=== PATIENT | male | born 1955 | race Caucasian/White ===

== ENCOUNTER 2017-04-19 12:06 | Emergency (ER) | payer OTHER ==
[~2017-04-19] VITALS: Ht 180.3 cm; Wt 120.5 kg
[2017-04-19] MEDS ORDERED: BRIL90TA (12:18)
[2017-04-19] MEDS ORDERED: LIPI80TA (12:18)
[2017-04-19] MEDS ORDERED: NITR4TASL (12:18)
[2017-04-19] MEDS ORDERED: LISI-538 (12:18)
[2017-04-19] MEDS ORDERED: TYLE650T35 PO (12:18)
[2017-04-19] MEDS ORDERED: ASPI1TAB15 (12:18)
[2017-04-19] MEDS ORDERED: VITA1CAP40 PO (12:18)
[2017-04-19] MEDS ORDERED: TRAM50TA2 (12:18)
[2017-04-19] MEDS ORDERED: [UNRECOGNIZED DRUG - CODE] (12:18)
[2017-04-19] MEDS ORDERED: CELE1CAP4 (12:18)
[2017-04-19] MEDS ORDERED: METAL LOCK LOOP XX ONE ×3 (12:42→13:55)
[2017-04-19] MEDS ORDERED: NORCO, ANEXSIA 5/325MG TABLET (HYDROcodone/ACETAMINOPHEN) PO ONE (13:15)
--- NOTE | 2017-04-19 14:03 | REP ---
Clinical: Trauma. Technique: Single AP view of the pelvis with neutral and frog lateral views of the right hip. Findings: Asymmetric advanced arthritic degenerative changes the right hip are appreciated and relatively similar when compared to CT of the abdomen and pelvis dated 2007. No obvious acute fracture dislocation. Impression: Advanced arthritic degenerative changes to the right hip. No obvious acute fracture dislocation. Signed by Adin Viveros MD 04/19/2017 01:55 P
--- NOTE | 2017-04-19 14:05 | REP ---
Clinical: Trauma. Technique: AP, lateral views of the right forearm. Findings: The osseous structures and joint spaces are intact and normal. There is no evidence for acute fracture or dislocation. Soft tissue swelling is noted underlying the mid forearm. No foreign body. Impression: Swelling. No acute fracture or dislocation. Signed by Adin Viveros MD 04/19/2017 01:56 P
[2017-04-19] MEDS ORDERED: NORCOTAB PO (14:42)
[2017-04-19 14:43] VITALS: BP 140/77
== END 2017-04-19 14:51 | disposition home or self-care (01) ==
LOC: M ED 12:06
DX: S70.01XA Contusion of right hip, initial encounter (principal); S50.11XA Contusion of right forearm, initial encounter; W01.198A Fall on same level from slipping, tripping and stumbling with subsequent striking against other object, initial encounter; Y92.019 Unspecified place in single-family (private) house as the place of occurrence of the external cause; Y93.89 Activity, other specified; Y99.8 Other external cause status; E78.00 Pure hypercholesterolemia, unspecified; Z79.899 Other long term (current) drug therapy; Z79.82 Long term (current) use of aspirin; Z95.5 Presence of coronary angioplasty implant and graft

== ENCOUNTER → 2019-06-07 | Outpatient (REF) | payer MEDICARE, OTHER ==
[~2019-06-07] MED LIST: ASPI1TAB15; BRIL90TA; CELE1CAP4; HYDR-3715 PO; LIPI80TA; LISI-538; NITR4TASL; TRAM50TA2; TYLE650T35 PO; VITA50005 PO; [UNRECOGNIZED DRUG - CODE]
[2019-06-07 17:15] LABS: ALBUMIN 3.5 GM/DL (3.2-5.2); ALT/SGPT 37 U/L (12-78); BILIRUBIN,TOTAL 0.4 MG/DL (0.2-1.0); BLOOD UREA NITROGEN 23 MG/DL (7-18); CALCIUM LEVEL 8.8 MG/DL (8.8-10.2); CARBON DIOXIDE LEVEL 27 MEQ/L (21-32); CHLORIDE LEVEL 106 MEQ/L (98-107); CHOLESTEROL LEVEL 176 MG/DL (<200); CHOLESTEROL RISK RATIO 3.744 (<5); CREATININE FOR GFR 1.09 MG/DL (0.70-1.30); GLOMERULAR FILTRATION RATE > 60.0 (>49); GLUCOSE, FASTING 96 MG/DL (70-100); HDL CHOLESTEROL 47 MG/DL (>40); LDL CHOLESTEROL 106 MG/DL (<100); NON-HDL-C 129 MG/DL; POTASSIUM SERUM 4.8 MEQ/L (3.5-5.1); SODIUM LEVEL 140 MEQ/L (136-145); TOTAL PROTEIN 6.8 GM/DL (6.4-8.2); TRIGLYCERIDES LEVEL 117 MG/DL (<150); URIC ACID 5.7 MG/DL (3.5-7.2)
[2019-06-07 19:59] LABS: HEMOGLOBIN A1c 6.2 %
== END ==
LOC: M SFHCLERA 10:02
PROVIDERS: ATTEND Family Medicine
DX: E55.9 Vitamin D deficiency, unspecified (principal); I10 Essential (primary) hypertension; M13.0 Polyarthritis, unspecified; E66.01 Morbid (severe) obesity due to excess calories

== ENCOUNTER → 2019-06-07 | Outpatient (CLI) | payer MEDICARE, OTHER ==
--- NOTE | 2019-06-07 15:53 | REP ---
REASON FOR EXAM: Polyarthropathy. COMPARISON EXAM: None. There is severe asymmetric interdigital joint space narrowing particularly affecting the DIP joints of digits 2-5 inclusive. More moderate changes are seen involving the PIP joints of digits 2-5 and the interphalangeal joint of digit 1. There is prominent marginal osteophytosis again, affecting the most heavily involved interphalangeal joint. There is no jayesh periarticular osteopenia and there are no jayesh marginal erosions. There is no acute fracture. Chronic changes are seen involving the wrist particularly the first carpometacarpal joint where there is asymmetric joint space narrowing and osteophytosis. IMPRESSION: Chronic changes as described above. Electronically Signed by Scottie Healy DO 06/07/2019 04:23 P
== END ==
LOC: M LRY 10:32
PROVIDERS: ATTEND Family Medicine
DX: M13.0 Polyarthritis, unspecified (principal); E55.9 Vitamin D deficiency, unspecified; I10 Essential (primary) hypertension; E66.01 Morbid (severe) obesity due to excess calories
CPT/HCPCS: 73120; 80053; 80061; 82306; 83036; 84443; 84550; G0463

== ENCOUNTER → 2019-10-25 | Outpatient (REF) | payer MEDICARE, OTHER ==
[2019-10-25 12:21] LABS: BLOOD UREA NITROGEN 24 MG/DL (7-18); CALCIUM LEVEL 9.6 MG/DL (8.8-10.2); CARBON DIOXIDE LEVEL 31 MEQ/L (21-32); CHLORIDE LEVEL 101 MEQ/L (98-107); CHOLESTEROL LEVEL 140 MG/DL (<200); CHOLESTEROL RISK RATIO 3.333 (<5); CREATININE FOR GFR 1.09 MG/DL (0.70-1.30); GLOMERULAR FILTRATION RATE > 60.0 (>49); GLUCOSE, FASTING 116 MG/DL (70-100); HDL CHOLESTEROL 42 MG/DL (>40); LDL CHOLESTEROL 82 MG/DL (<100); NON-HDL-C 98 MG/DL; POTASSIUM SERUM 4.9 MEQ/L (3.5-5.1); SODIUM LEVEL 138 MEQ/L (136-145); TRIGLYCERIDES LEVEL 78 MG/DL (<150)
== END ==
LOC: M SFHCLERA 07:45
PROVIDERS: ATTEND Family Medicine
DX: I10 Essential (primary) hypertension (principal)

== ENCOUNTER → 2019-12-19 | Outpatient (CLI) | payer MEDICARE, OTHER | LOC: M LABSMTC 13:11 | PROVIDERS: ATTEND Family Medicine | DX: Z11.59 Encounter for screening for other viral diseases (principal); Z20.828 Contact with and (suspected) exposure to other viral communicable diseases ==

== ENCOUNTER → 2021-06-28 | Outpatient (CLI) | payer MEDICARE, OTHER ==
[~2021-06-28] MED LIST changes: +ACET650T61 PO; +ASPI-546; -ASPI1TAB15; +CO-E100C2; -LISI-538; +LISI20TA33; -TYLE650T35 PO; -[UNRECOGNIZED DRUG - CODE]
--- NOTE | 2021-06-28 13:35 | REP ---
INDICATION: BILATERAL DIAG RIGHT BREAST LUMP; RIGHT BREAST LUMP. COMPARISON: None. TECHNIQUE: MLO and CC views of bilateral breasts performed with tomosynthesis. Focused right breast ultrasound performed. FINDINGS: Ill-defined fibroglandular tissue is seen in the retroareolar regions bilaterally, right greater than left. No discrete nodule or architectural distortion is seen. No clustered microcalcifications are seen. Focused right retroareolar ultrasound demonstrates ill-defined fibroglandular tissue compatible with gynecomastia. IMPRESSION: BIRADS/ACR category 2, benign. There are mammographic and sonographic findings of asymmetric gynecomastia right greater than left. This mammogram was interpreted with the aid of an FDA-approved computer-aided detection system. The patient letter being requested is M2. RECOMMENDATION: Recommend clinical correlation and follow-up. A negative mammogram and ultrasound should not deter biopsy if there is a clinically suspicious palpable mass present. <Electronically signed by Vladimir Gordon > 06/28/21 [id number]
== END ==
LOC: M WHC 10:40
PROVIDERS: ATTEND Family Medicine
DX: Z12.31 Encounter for screening mammogram for malignant neoplasm of breast (principal); N64.89 Other specified disorders of breast
CPT/HCPCS: 76642; 77066; G0279

== ENCOUNTER 2022-02-01 07:29 | Emergency (ER) | payer MEDICARE, OTHER ==
[~2022-02-01] VITALS: Ht 180.3 cm; Wt 157.1 kg
[2022-02-01] MEDS ORDERED: DULO1CAP5 (07:48)
[2022-02-01] MEDS ORDERED: CHLO125TA (07:48)
[2022-02-01] MEDS ORDERED: OMEP40CA5 (07:48)
[2022-02-01 08:20] LABS: BASO # 0.1 10^3/uL (0.0-0.2); BASO % 0.8 % (0.0-1.0); EOS # 0.7 10^3/uL (0.0-0.5); HEMATOCRIT 42.7 % (42.0-52.0); HEMOGLOBIN 13.7 g/dl (13.5-17.5); LYMPH # 1.6 10^3/uL (1.5-5.0); LYMPH % 21.8 % (24.0-44.0); MEAN CORPUSCULAR HEMOGLOBIN 28.2 pg (27.0-33.0); MEAN CORPUSCULAR HGB CONC 32.1 g/dl (32.0-36.5); MONO # 0.5 10^3/uL (0.0-0.8); MONO % 6.3 % (2.0-8.0); NEUTROPHILS # 4.3 10^3/uL (1.5-8.5); NEUTROPHILS % 60.4 % (36.0-66.0); PLATELET COUNT, AUTOMATED 355 10^3/uL (150-450); RED BLOOD COUNT 4.85 10^6/uL (4.30-6.10); WHITE BLOOD COUNT 7.1 10^3/uL (4.0-10.0)
[2022-02-01] MEDS ORDERED: OXYMETAZOLINE 0.05% NASAL SPRAY (AFRIN) ONE (08:25)
[2022-02-01 08:31] LABS: INR 0.93; PROTHROMBIN TIME 12.9 SECONDS (12.7-14.5)
[2022-02-01 08:32] LABS: PARTIAL THROMBOPLASTIN TIME 31.2 SECONDS (25.9-37.0)
[2022-02-01] MEDS ORDERED: SILVER NITRATE APPLICATOR (1 = QTY 10) TOP ONE (09:20)
[2022-02-01 10:21] VITALS: BP 159/106
== END 2022-02-01 10:31 | disposition home or self-care (01) ==
LOC: M ED 07:29
DX: R04.0 Epistaxis (principal); I10 Essential (primary) hypertension; E78.5 Hyperlipidemia, unspecified; I25.10 Atherosclerotic heart disease of native coronary artery without angina pectoris; Z79.899 Other long term (current) drug therapy

== ENCOUNTER → 2022-05-29 | Outpatient (CLI) | payer MEDICARE, OTHER ==
[~2022-05-29] MED LIST changes: -ASPI-546; +ASPI-546 PO; +CHLO125TA PO; +COQ-100C5 PO; +DULO1CAP5 PO; -LIPI80TA; +LIPI80TA PO; -LISI20TA33; +LISI20TA33 PO; -NITR4TASL; +NITR4TASL SL; +OMEP40CA5 PO; +VITA500054 PO
== END ==
LOC: M LABSMTC 10:33
PROVIDERS: ATTEND Anesthesiology
DX: Z01.818 Encounter for other preprocedural examination (principal); Z11.52 Encounter for screening for COVID-19

== ENCOUNTER 2022-06-03 12:19 | Day surgery (SDC) | payer MEDICARE, OTHER ==
[~2022-06-03] VITALS: Ht 182.9 cm; Wt 156.4 kg
[~2022-06-03 12:19] MED LIST changes: +NS 1,000 ML IV ONE
[2022-06-03] MEDS ORDERED: propofoL 200 MG/20 ML VIAL As Ordered ONE (16:16)
[2022-06-03] MEDS ORDERED: LIDOCAINE 2% 100MG/5ML SDV (FOR ANES.) As Ordered ONE (16:16)
[2022-06-03] MEDS ORDERED: fentaNYL 100 MCG/2 ML INJECTION As Ordered ONE (16:17)
[2022-06-03 17:15] VITALS: BP 132/70
== END 2022-06-03 17:27 | disposition home or self-care (01) ==
LOC: M OPP 12:19
PROVIDERS: ATTEND Internal Medicine Gastroenterology
DX: Z12.11 Encounter for screening for malignant neoplasm of colon (principal); Z86.010 Personal history of colon polyps; K64.4 Residual hemorrhoidal skin tags; K64.8 Other hemorrhoids; K29.70 Gastritis, unspecified, without bleeding; Z79.02 Long term (current) use of antithrombotics/antiplatelets; Z79.82 Long term (current) use of aspirin; Z79.899 Other long term (current) drug therapy; I10 Essential (primary) hypertension; E78.5 Hyperlipidemia, unspecified; I25.2 Old myocardial infarction; Z95.5 Presence of coronary angioplasty implant and graft; Z80.42 Family history of malignant neoplasm of prostate; Z87.19 Personal history of other diseases of the digestive system
CPT/HCPCS: 43239; 88305; G0105; J3010

== ENCOUNTER 2023-08-30 11:57 | Emergency (ER) | payer OTHER ==
[~2023-08-30] VITALS: Ht 180.3 cm; Wt 148.4 kg
[~2023-08-30 11:57] MED LIST changes: -NS 1,000 ML IV ONE
[2023-08-30 11:58] VITALS: TEMP 97.9
[2023-08-30] MEDS ORDERED: CHLORTHALIDONE 25 MG TAB PO ONE (12:25)
[2023-08-30 13:06] VITALS: BP 186/103
[2023-08-30 13:08] LABS: BASO # 0.1 10^3/uL (0.0-0.2); BASO % 0.7 % (0.0-1.0); EOS # 0.5 10^3/uL (0.0-0.5); EOS % 5.4 % (0.0-3.0); HEMATOCRIT 47.8 % (42.0-52.0); HEMOGLOBIN 15.8 g/dl (13.5-17.5); LYMPH # 1.7 10^3/uL (1.5-5.0); LYMPH % 18.7 % (24.0-44.0); MEAN CORPUSCULAR HEMOGLOBIN 29.1 pg (27.0-33.0); MEAN CORPUSCULAR HGB CONC 33.1 g/dl (32.0-36.5); MONO # 0.6 10^3/uL (0.0-0.8); MONO % 7.1 % (2.0-8.0); NEUTROPHILS # 6.1 10^3/uL (1.5-8.5); NEUTROPHILS % 67.8 % (36.0-66.0); PLATELET COUNT, AUTOMATED 375 10^3/uL (150-450); RED BLOOD COUNT 5.43 10^6/uL (4.30-6.10)
[2023-08-30 13:38] LABS: CK-MB VALUE MASS 2.3 NG/ML (<3.6)
[2023-08-30 13:39] LABS: MB/CK RELATIVE INDEX 2.7 (< OR =4)
[2023-08-30 13:40] LABS: ALBUMIN 3.9 G/DL (3.2-5.2); ALKALINE PHOSPHATASE 127 U/L (46-116); ALT/SGPT 42 U/L (7.0-40); AST/SGOT 34 U/L (<34); BILIRUBIN,DIRECT 0.2 MG/DL (<0.4); BILIRUBIN,TOTAL 0.5 MG/DL (0.3-1.2); BLOOD UREA NITROGEN 22 MG/DL (9-23); CALCIUM LEVEL 9.5 MG/DL (8.3-10.6); CARBON DIOXIDE LEVEL 27 MMOL/L (20-31); CHLORIDE LEVEL 106 MMOL/L (98-107); CREATININE FOR GFR 1.02 MG/DL (0.70-1.30); GLOMERULAR FILTRATION RATE > 60.0 (>49); GLUCOSE, FASTING 115 MG/DL (74-106); POTASSIUM SERUM 4.4 MMOL/L (3.5-5.1); SODIUM LEVEL 141 MMOL/L (136-145); TOTAL PROTEIN 7.2 G/DL (5.7-8.2)
[2023-08-30 13:42] LABS: THYROID STIMULATING HORMONE 1.718 uIU/ML (0.55-4.78)
[2023-08-30] MEDS ORDERED: ISOVUE-370 76% 100ML VIAL As Ordered ONE (13:55)
[2023-08-30] MEDS ORDERED: ATOR80TA59 PO (15:03)
[2023-08-30] MEDS ORDERED: CO Q200C10 PO (15:03)
[2023-08-30] MEDS ORDERED: LISI20TA33 PO (15:03)
[2023-08-30] MEDS ORDERED: OMEP40CA4 PO (15:03)
[2023-08-30] MEDS ORDERED: CHLO125TA PO (15:03)
[2023-08-30] MEDS ORDERED: DULO30CA9 PO (15:03)
[2023-08-30 15:15] VITALS: BP 144/82; O2SAT 98
== END 2023-08-30 15:19 | disposition home or self-care (01) ==
LOC: M ED 11:57
DX: R06.02 Shortness of breath (principal); I10 Essential (primary) hypertension; Z76.0 Encounter for issue of repeat prescription; Z95.5 Presence of coronary angioplasty implant and graft; Z79.82 Long term (current) use of aspirin; Z79.899 Other long term (current) drug therapy
CPT/HCPCS: 71046; 71275; 80047; 80048; 80076; 82550; 82553; 83880; 84443; 84484; 85025; 87040; 87486; 87581; 87633; 87798; 93005; 93041; 94760; 99284; Q9967

== ENCOUNTER → 2024-08-15 | Outpatient (REF) ==
[~2024-08-15] MED LIST changes: +ATOR-398 PO; +ATOR80TA59 PO; +CO Q200C10 PO; +DULO30CA9 PO; -LIPI80TA PO; +OMEP40CA4 PO
== END ==
LOC: M PLAIMG 08:29
PROVIDERS: ATTEND Internal Medicine
DX: R06.02 Shortness of breath (principal)

== ENCOUNTER → 2024-08-19 | Outpatient (CLI) | payer OTHER | LOC: M SOG 10:05 | PROVIDERS: ATTEND Orthopaedic Surgery | DX: M16.11 Unilateral primary osteoarthritis, right hip (principal); M17.0 Bilateral primary osteoarthritis of knee ==

== ENCOUNTER → 2024-10-14 | Outpatient (CLI) | payer OTHER | LOC: M CARPUL 13:12 | PROVIDERS: ATTEND Registered Nurse | DX: R06.02 Shortness of breath (principal); I35.1 Nonrheumatic aortic (valve) insufficiency; I50.32 Chronic diastolic (congestive) heart failure ==

== ENCOUNTER → 2024-10-25 | Outpatient (CLI) | payer OTHER | LOC: M PLAIMG 14:08 | PROVIDERS: ATTEND Registered Nurse | DX: F03.90 Unspecified dementia, unspecified severity, without behavioral disturbance, psychotic disturbance, mood disturbance, and anxiety (principal) ==